=== PATIENT | male | born 1990 | race Caucasian/White ===

== ENCOUNTER 2019-04-15 20:41 | Emergency (ER) | payer SELFPAY ==
[~2019-04-15] VITALS: Ht 182.9 cm; Wt 86.4 kg
[2019-04-15 20:47] VITALS: TEMP 97.9
[2019-04-15 22:30] VITALS: BP 125/80; PULSE 80
== END 2019-04-15 22:31 | disposition home or self-care (01) ==
LOC: COL.ER 20:41
DX: S62.306A Unspecified fracture of fifth metacarpal bone, right hand, initial encounter for closed fracture (principal); W22.8XXA Striking against or struck by other objects, initial encounter
CPT/HCPCS: Q4021

== ENCOUNTER 2023-04-10 00:09 | Observation (INO) | payer BC ==
[~2023-04-10] VITALS: Ht 182.9 cm; Wt 97.0 kg
[~2023-04-10 00:09] MED LIST: AMOXICILLIN 8751 TAB PO
[2023-04-10 02:15] LABS: ARTERIAL BLD GAS O2 SATURATION 89.9 % (92-100); ARTERIAL BLOOD GAS BASE EXCESS -3.2 (-2-2); ARTERIAL BLOOD GAS HCO3 20.9 meq/L (22-26); ARTERIAL BLOOD GAS PCO2 34.9 mmHg (35-45)
[2023-04-10 02:34] LABS: BASO # 0.1 K/mm3 (0.0-0.2); BASO % 0.5 % (0.0-2.0); EOS # 1.5 K/mm3 (0.0-0.7); EOS % 14.4 % (0.0-4.0); GRAN # 5.4 K/mm3 (1.4-6.5); GRAN % 53.1 % (42.2-75.2); HEMATOCRIT 46.6 % (42.0-52.0); HEMOGLOBIN 15.7 g/dl (13.5-18.0); LYMPH # 2.6 K/mm3 (1.2-3.4); LYMPH % 25.4 % (20.0-51.0); MEAN CELL VOLUME 93 fl (80.0-100.0); MEAN CORPUSCULAR HEMOGLOBIN 32 pg (27-31); MEAN CORPUSCULAR HGB CONC 34 g/dl (33.0-37.0); MEAN PLATELET VOLUME 9.1 fl (7.4-10.4); MONO # 0.7 K/mm3 (0.1-0.6); MONO % 6.4 % (1.7-9.3); PLATELET COUNT 300 K/mm3 (130-400); RED BLOOD COUNT 4.99 M/mm3 (4.20-5.60)
[2023-04-10 02:56] LABS: ALANINE AMINOTRANSFERASE 31 U/L (0-55); ALBUMIN 4.2 gm/dL (3.5-5.0); ALKALINE PHOSPHATASE 90 U/L (40-150); ANION GAP 15 mmol/L (7-16); AST,SGOT 26 U/L (5-34); BILIRUBIN,TOTAL 0.4 mg/dL (0.2-1.2); BLOOD UREA NITROGEN 9 mg/dL (9-21); CALCIUM 9.3 mg/dL (8.4-10.2); CARBON DIOXIDE 21 mmol/L (22-29); CHLORIDE 105 mmol/L (98-107); CREATININE, serum 0.86 mg/dL (0.72-1.25); GLUCOSE 96 mg/dL (70-99); POTASSIUM 4.1 mmol/L (3.5-4.5); SODIUM 141 mmol/L (136-145); TOTAL PROTEIN 7.6 gm/dL (6.2-8.1)
[2023-04-10 03:03] LABS: TROPONIN-I < 0.010 ng/mL (0.00-0.033)
--- NOTE | 2023-04-10 06:25 | NUR ---
PT ARRIVED TO THE MEDICAL FLOOR JUST BEFORE 0630HRS. PT A&O X 4; VSS WITH AN ELEVATED HR; O2 2L VIA NC. PT DENIED GENERAL PAIN, CHEST PAIN, N,V,D OR DIZZINESS. ADMISSION INTAKE, COVID-19 SCREEN, AND MED REC COMPLETE. PT ORIENTED TO ROOM AND HOSPITAL POLICY. ALL QUESTIONS AND CONCERNS ADDRESSED. PT EXPRESSED NO ADDITIONAL NEEDS AT THIS TIME. CALL LIGHT WITHIN REACH.
[2023-04-10 07:27] VITALS: BP 116/59; PULSE 110; TEMP 98.6
--- NOTE | 2023-04-10 09:25 | NUR ---
PATIENT ALERT AND ORIENTED X4. PATIENT IS ON 2L O2 N/C. PATIENT REPORTS NO PAIN AT THIS TIME. CALL LIGHT WITHIN REACH.
[2023-04-10 11:20] VITALS: BP 143/78; PULSE 110; TEMP 99
--- NOTE | 2023-04-10 12:09 | NUR ---
SW met with patient to complete intake. Patient provides he lives in [facility]. Next of kin is mother Leslie Sosa [phone]. Patient provides he does not utilize DME, independent with ADL's and and does not utilize HH services at this time. Patient provides that he does not have a PCP and does not wish to obtain document to obtain a PCP stating he wouldn't follow up with one. SM does not have an appointed DPOA at this time. Patient states that he plans to return to his home upon DC. SW will continue to follow DC plan: home
[2023-04-10] MEDS ORDERED: PROAIR HFA0.09 MG/AC IH (12:30)
[2023-04-10] MEDS ORDERED: PREDNISONE10 MG PO (12:32)
[2023-04-10 13:00] VITALS: BP_SYST 143
--- NOTE | 2023-04-10 13:30 | NUR ---
PATIENT DISCHARGE INSTRUCTIONS GIVEN. PATIENT HAD NO QUESTIONS WHEN ASKED IF HE HAD ANY QUESTIONS. PATIENT ESCORTED OUT OF HOSPITAL BY STAFF.
== END 2023-04-10 13:50 | disposition home or self-care (01) ==
LOC: COL.ER 00:09 → MEDICAL 04:19
PROVIDERS: Emergency Medicine; ADMIT Internal Medicine
DX: J96.01 Acute respiratory failure with hypoxia (principal); J45.901 Unspecified asthma with (acute) exacerbation; F17.220 Nicotine dependence, chewing tobacco, uncomplicated; F17.290 Nicotine dependence, other tobacco product, uncomplicated; Z28.310 Unvaccinated for COVID-19; Z79.899 Other long term (current) drug therapy
CPT/HCPCS: A4614; G0378; J1100; J1650; J2920